=== PATIENT | male | born 1940 | race Caucasian/White ===

== ENCOUNTER 2017-12-03 12:55 | Outpatient (CLI) | payer MEDICARE ==
[~2017-12-03] VITALS: Ht 152.4 cm; Wt 61.9 kg
[~2017-12-03 12:55] MED LIST: ALFU10TA11 PO; CHOL2000 PO; FINA5TAB6 PO; HUMALOG INSULIN; LANTUS; NFNEB10T PO; OMEP20CA12 PO; SIMV40TA4 PO; VLS80C PO
[2017-12-03] MEDS ORDERED: FINA5TAB6 PO (13:10)
[2017-12-03] MEDS ORDERED: SIMV40TA4 PO (13:10)
[2017-12-03] MEDS ORDERED: OMEP20TA7 PO (13:10)
[2017-12-03] MEDS ORDERED: CHOL20003 PO (13:10)
[2017-12-03] MEDS ORDERED: INSU100V6 SQ (13:10)
[2017-12-03] MEDS ORDERED: METO-370 PO (13:10)
[2017-12-03] MEDS ORDERED: ALFU10TA11 PO (13:10)
[2017-12-03] MEDS ORDERED: PAMI30VI8 SQ ×2 (13:10)
[2017-12-03] MEDS ORDERED: LOSA50TA36 PO (13:10)
[2017-12-03 13:14] VITALS: BP 107/53
[2017-12-09] MEDS ORDERED: ACHD5005 PO (08:58)
== END 2017-12-03 14:30 | disposition home or self-care (01) ==
LOC: PREOP 12:55
PROVIDERS: ATTEND Surgery
DX: Z01.818 Encounter for other preprocedural examination (principal)
CPT/HCPCS: 87081

== ENCOUNTER 2017-12-09 07:35 | Day surgery (SDC) | payer MEDICARE ==
[~2017-12-09] VITALS: Ht 152.4 cm; Wt 61.9 kg
[~2017-12-09 07:35] MED LIST changes: +CHOL20003 PO; +INSU100V6 SQ; +LOSA50TA36 PO; +METO-370 PO; +OMEP20TA7 PO; +PAMI30VI8 SQ
--- OUTSIDE RECORDS SUMMARY | 2017-12-09 07:38 | XMS REPORT | Continuity of Care Document ---
Author Author [facility] Organization [facility] Address Unknown Phone Unavailable Allergies Active Description Code Type Severity Reaction Onset Reported/Identified Relationship to Patient Clinical Status Yes No Known Drug Allergies [id number] Drug Allergy Unknown N/A 12/03/2017 Medications There is no data. Problems Date Dx Coded Attending Type Code Diagnosis Diagnosed By 07/24/2011 Ot 211.3 07/24/2011 Ot 600.00 07/24/2011 Ot V16.0 07/24/2011 Ot V76.51 02/04/2015 Ot V72.84 02/24/2015 JOSHUA BRAUN MD Ot 728.87 02/24/2015 JOSHUA BRAUN MD Ot 737.30 03/07/2015 JOSHUA BRAUN MD Ot 728.87 03/07/2015 JOSHUA BRAUN MD Ot 737.30 03/10/2015 JOSHUA BRAUN MD Ot 780.79 OTH MALAISE FATIGUE 03/10/2015 APARNA DAMON, JOSHUA Peterson Ot R53.1 WEAKNESS 12/03/2017 JOSHUA BRAUN MD Ot 728.87 MUSCLE WEAKNESS (GENERALIZED) 12/03/2017 JOSHUA BRAUN MD Ot 737.30 IDIOPATHIC SCOLIOSIS 12/04/2017 COURTNEY MENDEZ DO Ot Z01.818 ENCOUNTER FOR OTHER PREPROCEDURAL EXAMIN 12/04/2017 COURTNEY MENDEZ DO Ot Z01.818 ENCOUNTER FOR OTHER PREPROCEDURAL EXAMIN Procedures There is no data. Results Test Result Range Methicillin resistant Staphylococcus aureus (MRSA) screening culture - 13:30 Methicillin resistant Staphylococcus aureus (MRSA) screening culture NEG NRG Encounters ACCT No. Visit Date/Time Discharge Status Pt. Type Provider Facility Loc./Unit Complaint [id number] 12/03/2017 12:55:00 12/03/2017 14:30:00 DIS Outpatient COURTNEY MENDEZ DO [facility] PREOP LEFT INGUINAL HERNIA [id number] 03/10/2015 12:53:00 03/10/2015 14:24:00 DIS Outpatient JOSHUA BRAUN MD [facility] REHAB L LE RADICULAR PAIN [id number] 02/04/2015 07:58:00 02/04/2015 23:59:59 CLS Outpatient JOSHUA BRAUN MD [facility] RAD LEFT LOWER EXTREMITIY WEAKNESS SCOLOSIS [id number] 12/09/2017 08:50:00 PEN Preadmit COURTNEY MENDEZ DO [facility] LEFT INGUINAL HERNIA [id number] 02/04/2015 07:58:00 Document Registration [id number] 02/04/2015 07:58:00 Document Registration [email or web address] 02/28/2015 13:07:11 ACT Document Registration
[2017-12-09] MEDS ORDERED: fentaNYL INJECTION 100 MCG/2 ML AMP ONE (07:39)
[2017-12-09] MEDS ORDERED: proPOfol 200 MG/20 ML (DIPRIVAN) VIAL IV ONE (07:39)
[2017-12-09 07:45] VITALS: BP 156/78
[2017-12-09] MEDS ORDERED: LIDOCAINE/EPI 1%-1:200,000 (XYLOCAINE) 10 ML VIAL ONE (07:45)
[2017-12-09] MEDS: LACTATED RINGERS 1,000 ML IV PRN ×2 (07:45→08:52)
[2017-12-09] MEDS ORDERED: ceFAZolin 2 GM IV Premixed 50 ML IV ONE ×2 (07:45→08:30)
[2017-12-09] MEDS ORDERED: ONDANSETRON 4 MG/2 ML (SDV) Z0FRAN ONE (07:53)
[2017-12-09] MEDS ORDERED: LIDOCAINE PF 2% 5 ML (XYLOCAINE) VIAL ONE (07:53)
[2017-12-09] MEDS ORDERED: ROCURONIUM 10 MG/ML 5 ML SYRINGE IV ONE (07:53)
[2017-12-09] MEDS ORDERED: inSUlin (REGULAR) HUMAN 1 UNIT/0.01 ML (CHARGE PER UNIT) ONE (07:58)
[2017-12-09] MEDS ORDERED: inSUlin (REGULAR) HUMAN 1 UNIT/0.01 ML (CHARGE PER UNIT) IV ONE (08:00)
--- NOTE | 2017-12-09 08:12 | Progress Note-Pre Operative ---
Pre-Operative Progress Note H&P Reviewed The H&P was reviewed, patient examined and no changes noted. Time Seen by Provider: 08:05 Date H&P Reviewed: Dec 09, 2017 Time H&P Reviewed: 08:08 Pre-Operative Diagnosis: Incarcerated left inguinal hernia COURTNEY MENDEZ DO Dec 09, 2017 08:12
[2017-12-09] MEDS ORDERED: SEVOFLURANE (ULTANE) 15 ML INHAL SOLN ONE (08:26)
[2017-12-09] MEDS ORDERED: PHENYLEPHRINE 100 MCG/ML 10 ML (ANESTHESIA) SYR ONE (08:26)
[2017-12-09] MEDS ORDERED: GLYCOPYRROLATE 0.2 MG/ML (ROBINUL) 2 ML VIAL ONE (08:31)
[2017-12-09] MEDS ORDERED: NEOSTIGMINE 1 MG/ML 5 ML SYRINGE ONE (08:31)
--- NOTE | 2017-12-09 08:56 | Progress Note-Post Operative ---
Post-Operative Progess Note Surgeon (s)/Career Resource Specialist (s) Surgeon COURTNEY MENDEZ DO Career Resource Specialist: [place] Pre-Operative Diagnosis Incarcerated left inguinal hernia Post-Operative Diagnosis Incarcerated Indirect left inguinal hernia, with small direct component Left cord lipoma Procedure & Operative Findings Date of Procedure 12/09/17 Procedure Performed/Findings LIH with mesh placement Excision of cord lipoma Anesthesia Type GET Estimated Blood Loss Estimated blood loss (mL): Scant Specimens/Packing Specimens Removed Left cord lipoma, hernia sac COURTNEY MENDEZ DO Dec 09, 2017 08:56
[2017-12-09] MEDS ORDERED: ACHD5005 PO (08:58)
--- NOTE | 2017-12-09 09:00 | Discharge Inst-Surgical ---
Discharge Inst-Surgical Depart Medication/Instructions New, Converted or Re-Newed RX: RX Given to Pt/Family Patient Instructions Follow up Appt: Make appointment for 1 week. Instructions: No lifting greater than 10 pounds. No strenuous activity. May shower in 24 hours, no tub bath or soaking. Use incentive spirometer at home as directed. No Smoking Skin/Wound Care: May remove bandages in am. You need to leave the Dermabond on over incision it will fall off on its own. Symptoms to Report: Appetite Changes, Extremity Discoloration, Numbness/Tingling, Swelling Increased , Bleeding Excessive, Eyesight Changes, Pain Increased, Urine Color Change, Constipation(Persistent), Fever over 101 degree F, Pain/Pressure in chest, Urinating Difficulty, Cough Up/Vomit Blood, Heart Beat Irreg/Pounding, Pain/ Pressure in jaw, Cramps in feet or legs, Lightheadedness, Pain/Pressure in shoulder, Diarrhea(Persistent), Memory Changes Suddenly, Questions/Concerns, Weight gain consecutive days, Dizziness/Fainting, Nausea/Vomiting, Shortness of Breath, Weight gain over 2 pounds If questions or concerns contact your physician Or seek help at emergency department. Activity Activity as Tolerated: Yes Activity Instructions: Avoid Pulling & Pushing, Avoid Stress to Incision Driving Instructions: No Driving/Refer to Dr. Ochoa Discharge Diet: No Restrictions Diet After 24 Hours: Clear Liquid if Nauseous If Any Problems/Questions/Issu: Contact Your Physician, Go to Emergency Room Skin/Wound Care Infection Signs and Symptoms: Increased Redness, Foul Odor of Wound, Increased Drainage, Skin Itchy or Has a Rash, Increased Swelling, Temperature Above 101 F Bathing Instructions: Shower Stitches/Jah/Dermabond Dis: Dermabond Ice Pack: Ice On and Off Site (as needed for pain) COURTNEY MENDEZ DO Dec 09, 2017 09:00
[2017-12-09] MEDS ORDERED: ONDANSETRON 4 MG/2 ML (SDV) Z0FRAN IVP PRN (09:15)
[2017-12-09] MEDS ORDERED: HYDROmorphone 1 MG/ML (DILAUDID) 1 ML SYRINGE ONE (09:23)
[2017-12-09] MEDS: HYDROmorphone 1 MG/ML (DILAUDID) 1 ML SYRINGE IV PRN ×2 (09:25→09:35)
[2017-12-09 10:05] VITALS: BP 150/77
[2017-12-09 10:35] VITALS: BP 164/80
[2017-12-09 11:05] VITALS: BP_SYST 164; BP_SYST 167; BP_DIAS 75; BP_DIAS 80
--- NOTE | 2017-12-09 16:16 | OPERATIVE REPORT ---
DATE OF SERVICE: 12/09/2017 PREOPERATIVE DIAGNOSIS: Incarcerated left inguinal hernia. POSTOPERATIVE DIAGNOSES: 1. Left indirect incarcerated inguinal hernia with a small direct component. 2. Cord lipoma. PROCEDURES: 1. Left inguinal herniorrhaphy with mesh placement. 2. Excision of cord lipoma. SURGEON: Mat Rodriguez DO. BEHAVIORIST: Gallito Prasad DO. ANESTHESIA: General endotracheal tube. SPECIMEN: 1. Hernia sac. 2. Cord lipoma. BLOOD LOSS: Scant. FLUIDS: Per anesthesia. POSTOPERATIVE CONDITION: Stable. INDICATION FOR PROCEDURE: The patient is a 77-year-old male who has a large bulge in left inguinal region getting a little bit bigger and causing little bit of pain and needed to get this fixed; it was diagnosed with incarcerated hernia just to make sure there is no intestine stuck in there. FINDINGS: The patient had some omentum stuck in the inguinal hernia sac. Able to reduce this easily. Also, the small direct component and he had a large cord lipoma that was removed. PROCEDURE NOTE: After informed consent was obtained, the patient was brought to the operating room, placed on the operating table in supine position, sterilely prepped and draped in normal fashion. Local lidocaine was used to perform an ilioinguinal nerve block as well as pubic tubercle block. I then infiltrated left inguinal region with local, made incision with #15 blade, carried down through skin and subcutaneous tissue, then deepened down to subcutaneous tissue with Bovie electrocautery down to the fascia of the external oblique. External oblique fascia was then infiltrated with local and incised through the external inguinal ring with Bovie electrocautery, grasped the 2 sides with hemostats and then getting under the external oblique fascia bluntly with a finger sweeping around to free up space and then getting under the cord and cord structures at the pubic tubercle, placed a Lane drain put in inferolateral direction. We started dissecting out looking superiorly and medially finding a large indirect inguinal hernia sac. Also noted a little bit of a floor defect. Hernia sac was then opened, found some omentum here, pushed this in and then carefully twisted the sac down, suture ligated with 0 Vicryl suture and then 0 Vicryl tie and then cut this hernia sac off and watched it retract. I closed the floor of the inguinal canal with a [id number] 0 Vicryl suture. I then elected to place a left-sided Parietex mesh, trimmed it to fit into the inguinal canal, sutured one to the pubic tubercle and encircled the cord with a precut hole and then placed rest of it up under the external oblique fascia and laid in nicely, but placed some 2-0 Vicryl sutures along the lateral portion of Poupart's ligament to hold this mesh down. Copiously irrigated with normal saline, suctioned this out and then closed the external oblique fascia with 3-0 Vicryl running suture, thereby recreating the external inguinal ring and the internal inguinal ring recreated with the mesh, closed Fredrick's fascia with 3-0 Vicryl interrupted sutures, then closed the skin with a 4-0 undyed Monocryl in subcuticular fashion. Area was cleaned and dried. Dermabond was placed and a dressing. The patient was then transferred to recovery room in stable condition. Sponge, instrument and needle counts were correct at the end of the case. Dr. Prasad assisted on this case helping to identify anatomy, hold anatomy out of the way and then closed the incision. Job ID: [id number] DocumentID: [id number] Dictated Date: 12/09/2017 11:27:28 Automation Controls Expert Date: 12/09/2017 16:15:54 Dictated By: DO JANN ENGEL
== END 2017-12-09 11:15 | disposition home or self-care (01) ==
LOC: SDC 07:35
PROVIDERS: ATTEND Surgery
DX: K40.31 Unilateral inguinal hernia, with obstruction, without gangrene, recurrent (principal); D17.6 Benign lipomatous neoplasm of spermatic cord; K42.9 Umbilical hernia without obstruction or gangrene; I10 Essential (primary) hypertension; E11.9 Type 2 diabetes mellitus without complications; E78.5 Hyperlipidemia, unspecified; K21.9 Gastro-esophageal reflux disease without esophagitis; Z79.899 Other long term (current) drug therapy; Z79.4 Long term (current) use of insulin
CPT/HCPCS: 82962; 94664

== ENCOUNTER 2019-02-20 11:09 | Outpatient (RCR) | payer MEDICARE ==
[~2019-02-20 11:09] MED LIST changes: +ACHD5005 PO; -LOSA50TA36 PO; +LOSA50TA63 PO
== END 2019-02-20 14:53 | disposition home or self-care (01) ==
PROVIDERS: ATTEND Nurse Practitioner Family
DX: Z98.890 Other specified postprocedural states (principal)

== ENCOUNTER 2021-11-23 14:23 | Emergency (ER) | payer MEDICARE ==
[~2021-11-23] VITALS: Ht 152.4 cm; Wt 61.0 kg
[~2021-11-23 14:23] MED LIST changes: +ALFU10TA12 PO; -METO-370 PO; +METO50TA7 PO; +OMEP20TA56 PO; -OMEP20TA7 PO; +SIMV40TA25 PO
[2021-11-23 14:40] LABS: BASOPHILS % (AUTO) 1 % (0-10); EOSINOPHILS # (AUTO) 0.1 10^3/uL (0.0-0.3); EOSINOPHILS % (AUTO) 1 % (0-10); HEMATOCRIT 36 % (40-54); HEMOGLOBIN 12.1 g/dL (13.3-17.7); LYMPHOCYTES # (AUTO) 1.1 10^3/uL (1.0-4.0); LYMPHOCYTES % (AUTO) 21 % (12-44); MEAN CORPUSCULAR HEMOGLOBIN 31 pg (25-34); MEAN CORPUSCULAR HGB CONC 33 g/dL (32-36); MEAN CORPUSCULAR VOLUME 93 fL (80-99); MONOCYTES # (AUTO) 0.5 10^3/uL (0.0-1.0); MONOCYTES % (AUTO) 9 % (0-12); NEUTROPHILS # (AUTO) 3.5 10^3/uL (1.8-7.8); NEUTROPHILS % (AUTO) 67 % (42-75); PLATELET COUNT 175 10^3/uL (130-400); WHITE BLOOD COUNT 5.3 10^3/uL (4.3-11.0)
--- NOTE | 2021-11-23 14:40 | ED General ---
General Chief Complaint: Cardiac/General Problems Stated Complaint: HYPOTENSION History of Present Illness Date Seen by Provider: Nov 23, 2021 Time Seen by Provider: 14:25 Initial Comments 81-year-old male presents via EMS after a possible syncopal or hypoglycemic event at home. He is a known diabetic and states that he felt like his sugars could be getting low so he began using his sugar tablets. EMS was called and his initial blood sugar was in the 120s, after approximately 15 minutes they were in the 130s. In addition he was hypotensive upon initial exam and was given IV fluids with quick improvement of his blood pressure. He reports being outside doing some work earlier today and eating lunch at approximately 11:00 AM. He has hypoglycemic events regularly and always carries a sugar pill. Timing/Duration: 1 Hour Severity: Mild Associated Systoms: Denies Symptoms (EUGENE SMITH) Allergies and Home Medications Allergies Coded Allergies: No Known Drug Allergies (Unverified , 12/03/17) Patient Home Medication List Home Medication List Reviewed: Yes (EUGENE SMITH) Alfuzosin HCl (Alfuzosin HCl ER) 10 Mg Tab.er.24h, 10 MG PO DAILY, (Reported) Entered as Reported by: NEGRA GOMEZ on 12/03/17 1310 Cholecalciferol (Vitamin D3) (Vitamin D3) 2,000 Unit Capsule, 2,000 UNIT PO DAILY, (Reported) Entered as Reported by: NEGRA GOMEZ on 12/03/17 1310 Finasteride (Finasteride) 5 Mg Tablet, 5 MG PO DAILY, (Reported) Entered as Reported by: NEGRA GOMEZ on 12/03/17 1310 Hydrocodone Bit/Acetaminophen (Lortab 5 Mg Tablet) 1 Tab Tab, 1 TAB PO Q6H PRN Prescribed by: COURTNEY MENDEZ on 12/09/17 0858 Insulin Glargine,Hum.rec.anlog (Lantus) 100 Unit/1 Ml Vial, 8 UNIT SQ HS, (Reported) Entered as Reported by: NEGRA GOMEZ on 12/03/17 1310 Insulin Lispro (Humalog) 100 Unit/1 Ml Cartridge, 4 UNIT SQ AM AND NOON, (Reported) Entered as Reported by: NEGRA GOMEZ on 12/03/17 1310 Insulin Lispro (Humalog) 100 Unit/1 Ml Cartridge, 8 UNIT SQ DINNER, (Reported) Entered as Reported by: NEGRA GOMEZ on 12/03/17 131 Losartan Potassium (Losartan Potassium) 50 Mg Tablet, 50 MG PO DAILY, (Reported) Entered as Reported by: NEGRA GOMEZ on 12/03/17 131 Metoprolol Succinate (Metoprolol Succinate) 50 Mg Tab.er.24h, 50 MG PO DAILY, (Reported) Entered as Reported by: NEGRA GOMEZ on 12/03/17 131 Omeprazole (Omeprazole) 20 Mg Tablet.dr, 20 MG PO DAILY, (Reported) Entered as Reported by: NEGRA GOMEZ on 12/03/17 131 Simvastatin (Simvastatin) 40 Mg Tablet, 40 MG PO HS, (Reported) Entered as Reported by: NEGRA GOMEZ on 12/03/171309 Review of Systems Review of Systems Constitutional: no symptoms reported, see HPI EENTM: see HPI, no symptoms reported Respiratory: no symptoms reported, see HPI Cardiovascular: no symptoms reported, see HPI Gastrointestinal: no symptoms reported, see HPI Musculoskeletal: no symptoms reported, see HPI Skin: no symptoms reported, see HPI (EUGENE SMITH) All Other Systems Reviewed Negative Unless Noted: Yes (EUGENE SMITH) Past Ifutjmq-Xfojsa-Dxjxko Hx Seasonal Allergies Seasonal Allergies: No (EUGENE SMITH) Past Medical History High Cholesterol, Hypertension Reproductive Disorders: No Sexually Transmitted Disease: No HIV/AIDS: No Prostate Problems Gastroesophageal Reflux Scoliosis Loss of Vision: Bilateral Hearing Impairment: Denies Adverse Reaction/Blood Tranf: No (N/A) (EUGENE SMITH) Family Medical History Reviewed Nursing Family Hx (EUGENE SMITH) Physical Exam Vital Signs Vital Signs - First Documented 11/23/21 14:24 Temp 35.9 Pulse 78 Resp 20 B/P (MAP) 159/74 (102) Pulse Ox 97 O2 Delivery Room Air (RIC WOODALL MD) Vital Signs Capillary Refill : (EUGENE SMITH) Height, Weight, BMI Height: 5'0.00" Weight: 136lbs. 8.0oz. 61.507654zp; 26.7 BMI Method: General Appearance: No Apparent Distress, WD/WN HEENT: PERRL/EOMI, TMs Normal, Normal ENT Inspection, Pharynx Normal Neck: Full Range of Motion, Normal Inspection, Non Tender, Supple Respiratory: Chest Non Tender, Lungs Clear, Normal Breath Sounds Cardiovascular: Regular Rate, Rhythm, No Edema, No Murmur, Normal Peripheral Pulses Gastrointestinal: Normal Bowel Sounds, Non Tender, Soft Neurologic/Psychiatric: Alert, Oriented x3, No Motor/Sensory Deficits, Normal Mood/Affect Skin: Normal Color, Warm/Dry (EUGENE SMITH) Progress/Results/Core Measures Suspected Sepsis SIRS Temperature: Pulse: Respiratory Rate: Laboratory Tests 11/23/21 14:24: White Blood Count 5.3 Blood Pressure / Mean: Laboratory Tests 11/23/21 14:24: Creatinine 1.73H, Platelet Count 175, Total Bilirubin 0.9 (EUGENE SMITH) Results/Orders Lab Results Laboratory Tests Test 11/23/21 14:24 11/23/21 14:32 Range/Units White Blood Count 5.3 4.3-11.0 10^3/uL Red Blood Count 3.89 L 4.30-5.52 10^6/uL Hemoglobin 12.1 L 13.3-17.7 g/dL Hematocrit 36 L 40-54 % Mean Corpuscular Volume 93 80-99 fL Mean Corpuscular Hemoglobin 31 25-34 pg Mean Corpuscular Hemoglobin Concent 33 32-36 g/dL Red Cell Distribution Width 12.5 10.0-14.5 % Platelet Count 175 130-400 10^3/uL Mean Platelet Volume 10.0 9.0-12.2 fL Immature Granulocyte % (Auto) 0 % Neutrophils (%) (Auto) 67 42-75 % Lymphocytes (%) (Auto) 21 12-44 % Monocytes (%) (Auto) 9 0-12 % Eosinophils (%) (Auto) 1 0-10 % Basophils (%) (Auto) 1 0-10 % Neutrophils # (Auto) 3.5 1.8-7.8 10^3/uL Lymphocytes # (Auto) 1.1 1.0-4.0 10^3/uL Monocytes # (Auto) 0.5 0.0-1.0 10^3/uL Eosinophils # (Auto) 0.1 0.0-0.3 10^3/uL Basophils # (Auto) 0.0 0.0-0.1 10^3/uL Immature Granulocyte # (Auto) 0.0 0.0-0.1 10^3/uL Sodium Level 142 135-145 MMOL/L Potassium Level 4.4 3.6-5.0 MMOL/L Chloride Level 108 H 98-107 MMOL/L Carbon Dioxide Level 22 21-32 MMOL/L Anion Gap 12 5-14 MMOL/L Blood Urea Nitrogen 43 H 7-18 MG/DL Creatinine 1.73 H 0.60-1.30 MG/DL Estimat Glomerular Filtration Rate 39 BUN/Creatinine Ratio 25 Glucose Level 116 H 70-105 MG/DL Calcium Level 9.1 8.5-10.1 MG/DL Corrected Calcium 9.0 8.5-10.1 MG/DL Total Bilirubin 0.9 0.1-1.0 MG/DL Aspartate Amino Transf (AST/SGOT) 20 5-34 U/L Alanine Aminotransferase (ALT/SGPT) 13 0-55 U/L Alkaline Phosphatase 70 40-136 U/L Total Protein 7.2 6.4-8.2 GM/DL Albumin 4.1 3.2-4.5 GM/DL Glucometer 144 H 70-110 MG/DL (RIC WOODALL MD) Vital Signs/I&O 11/23/21 11/23/21 14:24 15:35 Temp 35.9 Pulse 78 85 Resp 20 16 B/P (MAP) 159/74 (102) 168/78 Pulse Ox 97 99 O2 Delivery Room Air Room Air (RIC WOODALL MD) Vital Signs/I&O Capillary Refill : (EUGENE SMITH) Point of Care Testing Finger Stick Blood Glucose: 144 Blood Glucose Action Taken: NURSE AND DOC NOTIFIED (EUGENE SMITH) Progress Note : Time: 14:25 Progress Note Patient seen and evaluated, will obtain labs and EKG. Continue infusing normal saline for now EMS. 1510 labs show mild dehydration, no other significant abnormalities on labs or EKG. patient ambulated in exam room with no dizziness or changes in symptoms. Patient reports to be feeling much better. Discharge instructions and return precautions reviewed. (EUGENE SMITH) Departure Impression Primary Impression: Hypoglycemia Additional Impression: Dehydration Disposition: HOME, SELF-CARE Condition: Improved Departure-Patient Inst. Decision time for Depature: 15:10 (EUGENE SMITH) Referrals: JOSHUA NEWMAN MD (PCP/Family) Primary Care Physician Patient Instructions: Dehydration, Adult (DC), Low Blood Sugar, Adult (DC) Add. Discharge Instructions: Increase water intake, 16 ounces every 2 hours while awake. Continue to monitor blood sugar and take your results to your appointment with Dr. Newman. Limit time outside in the heat. Follow-up in the emergency department if you have new, urgent healthcare needs. All discharge instructions reviewed with patient and/or family. Voiced understanding. ATTENDING PHYSICIAN NOTE: I was physically present as attending physician in the emergency department during the care of this patient, but I was not directly involved in the decision making or delivery of care for this patient. (RIC WOODALL MD) Copy Copies To 1: JOSHUA NEWMAN MD, AMY ARNP Nov 23, 2021 14:39 RIC WOODALL MD Nov 23, 2021 17:30
[2021-11-23 14:50] LABS: ALBUMIN 4.1 GM/DL (3.2-4.5); POTASSIUM 4.4 MMOL/L (3.6-5.0)
[2021-11-23 14:51] LABS: CALCIUM 9.1 MG/DL (8.5-10.1)
[2021-11-23 14:53] LABS: TOTAL PROTEIN 7.2 GM/DL (6.4-8.2)
[2021-11-23 14:54] LABS: BILIRUBIN,TOTAL 0.9 MG/DL (0.1-1.0)
[2021-11-23 14:56] LABS: CREATININE SERUM 1.73 MG/DL (0.60-1.30)
[2021-11-23 15:35] VITALS: BP 168/78
== END 2021-11-23 15:35 | disposition home or self-care (01) ==
LOC: EDUNIT# 14:23 → ER 14:24
DX: E11.649 Type 2 diabetes mellitus with hypoglycemia without coma (principal); E86.0 Dehydration
CPT/HCPCS: 36415; 80053; 82947; 85025; 93005